=== PATIENT | male | born 1985 | race Caucasian/White ===

== ENCOUNTER 2017-01-14 13:23 | Emergency (ER) | payer BC, OTHER ==
[2017-01-14] MEDS ORDERED: ONDANSETRON 4 MG/2 ML VIAL IVP ONE ×2 (13:37→15:17)
[2017-01-14] MEDS ORDERED: HYDROmorphONE/DILAUDID 1 MG/ML SYR IVP ONE (13:37)
[2017-01-14] MEDS ORDERED: NS 1,000 ML IV ONE ×2 (13:37→14:40)
[2017-01-14] MEDS ORDERED: fentaNYL 100 MCG/2 ML INJ IVP ONE (13:37)
--- NOTE | 2017-01-14 13:44 | EDPHY ---
H & P HPI/ROS: HPI CHIEF COMPLAINT: Full trauma activation, fall while para gliding, lower extremity weakness and numbness and tingling HISTORY OF PRESENT ILLNESS: This patient 30-year-old male, presents emergency room by EMS as a full trauma alert. Upon arrival in emergency room is a GCS 15 , alert or x4, in a cervical collar. Complaining of low back pain, right hip pain, decreased sensation in his right lower extremity right lower extremity weakness. Unclear exactly how far he fell. He does not recall how high he was when he hit the ground. He states he was para clotting and then went into a spiral. Positive LOC. His main complaint is right hip pain, right leg pain. Additionally also has right chest wall pain. Upon arrival I did meet the patient in ER room to full trauma alert with Dr. Vineet Root's with Trauma surgery. The patient is alert or x4, GCS 15, he is hemodynamically stable. Head to toe trauma exam was performed. And fast bedside exam was performed. The patient's fast exam was negative upon arrival. His vital signs were stable. Pertinent positives on trauma exam head to toe he has right chest wall pain tenderness palpation, also has right hip pain times palpation. No respiratory distress. No abdominal pain. Patient head to toe exam. Remains hemodynamically stable he had a chest x-ray and a pelvis x-ray the chest x-ray do not appreciate a pneumothorax. Or significant rib fractures. His pelvis x-ray possible widening of the right SI joint. The patient was given 250 mg of IV fentanyl prior to arrival. 100 mcg of IV fentanyl in the emergency room as well as 1 mg Dilaudid IV. Past Medical History: Denies medical history Past Surgical History: Lipoma removal right lower abdomen Social History: Denies daily use drugs alcohol tobacco products Family History: Noncontributory ROS REVIEW OF SYSTEMS: A comprehensive 10 point review of systems is otherwise negative aside from elements mentioned in the history of present illness. Exam Constitutional GCS 15, alert or x4 triage nursing summary reviewed, vital signs reviewed, awake/alert. Eyes normal conjunctivae and sclera, EOMI, PERRLA. HENT head/neck atraumatic, remains cervical spine collar normal inspection, atraumatic, moist mucus membranes, no epistaxis, neck supple/ no meningismus, no raccoon eyes. Respiratory clear to auscultation bilaterally, normal breath sounds, no respiratory distress, no wheezing. Cardiovascular chest wall: Tender palpation right lateral chest wall, no crepitus, no flail chest, good breath sounds bilaterally, rate normal, regular rhythm, no murmur, no edema, distal pulses normal. Gastrointestinal soft, non-tender, no rebound, no guarding, normal bowel sounds, no distension, no pulsatile mass. Genitourinary no CVA tenderness. Musculoskeletal right hip: Tender palpation over the right SI joint. As well as iliac wing. Right leg: Good pulse. Decreased sensation of the right lower extremity compared to left lower extremity. Right leg does appear weaker than the left leg. Good distal pulse. Left leg unremarkable. Good distal pulse, cap refill normal, good sensation. no midline vertebral tenderness, full range of motion, no calf swelling, no tenderness of extremities, no meningismus, good pulses, neurovascularly intact. Skin pink, warm, & dry, no rash, skin atraumatic. Neurologic awake, alert and oriented x 3, AAOx3, moves all 4 extremities equally, motor intact, sensory intact, CN II-XII intact, normal cerebellar, normal vision, normal speech. Psychiatric normal mood/affect. Heme/Lymph/Immune no lymphadenopathy. Differential Diagnosis: Includes but is not limited to in a particular order, pelvic fracture, spinal fracture, lumbar fracture, multiple contusions, pneumothorax, rib fractures, intra-abdominal solid organ injury, poly trauma Medical Decision Making: Plan for this patient 2 large-bore IVs, full regulatory submissions specialist, fast exam, CT chest abdomen pelvis with IV contrast for trauma, CT recon of the thoracic and lumbar spine. Chest x-ray, pelvis x-ray. Type and screen. Re-evaluation: 1401: Consulted Dr. Ceballos with [facility] they will see him. Consultation. 1402: This patient at this time is back from CT is hemodynamically stable we did a head to toe trauma exam again in rolled him on his back he has some swelling over his posterior SI joints bilaterally an abrasion does left scapula. Otherwise unremarkable back exam good rectal tone. 40761: This patient remains hemodynamically stable. CT results show renal laceration, multiple lumbar transverse process fractures, bilateral rib fractures. Small pneumothorax. Multiple pelvic fractures. 1452: This time the patient remains hemodynamically stable. Neurosurgery is at bedside evaluating him. The patient be admitted to the ICU 1st he will have an MRI of his lumbar spine. Due to his right leg weakness and sensory loss to top of his foot. Patient remains hemodynamically stable this time pain control. 1608: Of note this patient has been evaluated by Neurosurgery and Orthopedics they feel that his pelvis fractures too extensive to be appropriately cared for here at [facility]. They requested this patient be transferred out to a higher level of care which most likely be [facility]. Spoke with Dr. Silva the trauma surgeon will come down to the emergency room will touch base with [facility] or [facility] Trauma team for transfer. This patient be transferred by helicopter to there. Reason for transfer by helicopter is kidney laceration, extensive pelvic fractures, transverse process fractures and need for expedient care. 1624: This patient has been accepted by [facility] specifically trauma service specifically Dr. Alonso Madden. This patient be transferred by helicopter to [facility] from [facility]. Appropriate transfer paperwork has been set up. However cups her notified. Patient again at this time is hemodynamically stable and safe for transfer. Again reason for transfer complex pelvic fracture. Source: Patient, EMS Constitutional: Initial Vital Signs Temperature (C) 35.9 C L 01/14/17 13:25 Heart Rate 110 H 01/14/17 13:25 Respiratory Rate 16 01/14/17 13:25 Blood Pressure 120/80 01/14/17 13:25 O2 Sat (%) 97 01/14/17 13:25 O2 Delivery Mode Nasal Cannula O2 (L/minute) 2 Allergies/Adverse Reactions: Sulfa (Sulfonamide Antibiotics) Allergy (Verified 01/14/17 14:23) Home Medications: Medication Instructions Recorded NK [No Known Home Meds] 01/14/17 Medical Decision Making - Diagnostics Imaging Results: Imaging Impressions Chest CT 01/14/17 13:29 Impression: 1. Suspect tiny pneumothorax along the anterior surface of the liver. 2. Buckle fractures of the anterior right and left ribs near the costochondral junction. 3. No evidence of acute aortic injury. 4. No pulmonary contusion or hemothorax. 4. No thoracic spine fracture. Findings discussed with Emergency Department physician, Dr. Vineet Silva on 2016 at 1415 hours. Chest X-Ray 01/14/17 13:29 Impression: No acute findings on the imaged chest. The patient will subsequently undergo CT chest. Pelvis X-Ray 01/14/17 13:30 Impression: Probable comminuted sacral fracture. The patient will undergo CT pelvis the same day. Abdomen CT 01/14/17 13:38 Impression: 1. Grade 3 right renal injury. No active bleeding. Delayed imaging of the kidney to assess for urinary leak could not be obtained due to unstable pelvic fractures. 2. No evidence of solid organ injury. 3. Nondisplaced right L4 and L5 transverse fractures. 4. Complex sacral fracture. Findings discussed with Emergency Department physician, Dr. Bruno Silva on 01/14 at [address] 01/14/17 13:38 Impression: 1. Comminuted U-shaped transverse fracture involving the S1-S2 segment of the upper sacrum. 2. Comminuted vertically oriented bilateral sacral fractures coursing through the neural foramen. 3. Right L4 and L5 transverse process fractures. 4. No lumbar spine compression fracture or burst fracture. Findings discussed with Emergency Department physician, Dr. Bruno Silva on 01/14 at [address] 01/14/17 13:38 Impression: Negative for fracture. Findings discussed with Emergency Department physician, Dr. Bruno Silva on 01/14 at 1415 hours. - Data Points Medications Given: Discontinued Medications Diazepam (Valium Injection) 2.5 mg IVP EDNOW ONE Stop: 01/14/17 14:00 Last Admin: 01/14/17 14:00 Dose: 2.5 mg Diazepam (Valium Injection) 2.5 mg IVP EDNOW ONE Stop: 01/14/17 14:51 Last Admin: 01/14/17 14:58 Dose: 2.5 mg Fentanyl (Sublimaze) 100 mcg IVP EDNOW ONE Stop: 01/14/17 13:38 Last Admin: 01/14/17 13:27 Dose: 100 mcg Hydromorphone HCl (Dilaudid) 1 mg IVP EDNOW ONE Stop: 01/14/17 13:38 Last Admin: 01/14/17 13:37 Dose: 1 mg Hydromorphone HCl (Dilaudid) 1 mg IVP EDNOW ONE Stop: 01/14/17 14:31 Last Admin: 01/14/17 14:38 Dose: 1 mg Sodium Chloride (Ns) 1,000 mls @ 0 mls/hr IV ONCE ONE; Wide Open PRN Reason: Protocol Stop: 01/14/17 13:38 Last Admin: 01/14/17 13:25 Dose: 1,000 mls Ondansetron HCl (Zofran) 4 mg IVP EDNOW ONE Stop: 01/14/17 13:38 Last Admin: 01/14/17 14:38 Dose: 4 mg Ondansetron HCl (Zofran) 4 mg IVP EDNOW ONE Stop: 01/14/17 15:18 Last Admin: 01/14/17 15:27 Dose: 4 mg Departure - Departure Disposition: [facility] Inpatient Acute Clinical Impression: Multiple transverse process fractures Pelvic fracture Qualifiers: Encounter type: initial encounter Pelvic bone location: multiple parts Fracture type: closed Fracture alignment: with stable disruption of pelvic ring Qualified Code(s): S32.810A - Multiple fractures of pelvis with stable disruption of pelvic ring, initial encounter for closed fracture Fractured kidney Qualifiers: Encounter type: initial encounter Laterality: right Qualified Code(s): S37.091A - Other injury of right kidney, initial encounter Condition: Fair
[2017-01-14] MEDS ORDERED: DIAZEPAM 2.5 MG PR ONE (13:58)
[2017-01-14] MEDS ORDERED: DIAZEPAM 10 MG/2 ML SYR ONE (13:58)
[2017-01-14] MEDS ORDERED: DIAZEPAM 10 MG/2 ML SYR IVP ONE ×2 (13:59→14:50)
[2017-01-14 14:11] LABS: % IMMATURE GRANULYOCYTES 1.2 % (0.0-1.1); ADD DIFF? NO; ADD MORPH? NO; ADD SCAN? NO; ATYPICAL LYMPHOCYTE FLAG 0 (0-99); FRAGMENT RBC FLAG 0 (0-99); HEMATOCRIT 33.8 % (40.0-51.0); HEMOGLOBIN 11.6 g/dL (13.7-17.5); LEFT SHIFT FLG 70 (0-99); LIPEMIA HEMOLYSIS FLAG 90 (0-99); MEAN CELL HEMOGLOBIN 33.3 pg (27.9-34.1); MEAN CELL HEMOGLOBIN CONCENTR. 34.3 g/dL (32.4-36.7); MEAN CELL VOLUME 97.1 fL (81.5-99.8); MEAN PLATELET VOLUME 9.5 fL (8.7-11.7); PLATELET CLUMPS FLAG 0 (0-99); PLATELET COUNT 227 10^3/uL (150-400); RED BLOOD CELL COUNT 3.48 10^6/uL (4.40-6.38); RED CELL DISTRIBUTION WIDTH 12.6 % (11.5-15.2)
--- NOTE | 2017-01-14 14:12 | PDGENHP ---
History and Physical - Chief Complaint right hip pain - History of Present Illness 31 y/o male unwitnessed fall while paragliding, BIB EMR as a FTA. Patient was transported with cervical/lumbar spine precautions. I met him in the trauma bay with Dr. Franks upon arrival. He was awake and alert with complaints of right "hip" pain. He reports some numbness of his right foot. He denies LOC, nausea, vomiting, neck pain History Information - Allergies/Home Medication List Allergies/Adverse Reactions: Sulfa (Sulfonamide Antibiotics) Allergy (Verified 01/14/17 14:23) Home Medications: NK [No Known Home Meds] 01/14/17 [Last Taken Unknown] I have personally reviewed and updated: family history, medical history, social history, surgical history - Past Medical History no pertinent PMH - Surgical History Additional surgical history: laceration repair abdominal wall/RLQ - Social History Smoking Status: Current some day smoker Alcohol Use: Occasionally Drug Use: None Review of Systems Constitutional: Reports: no symptoms EENMT: Reports: no symptoms Cardiac: Reports: other (right lower chest pain) Respiratory: Reports: no symptoms Gastrointestinal: Reports: no symptoms Genitourinary: Reports: no symptoms Muscolosketal: Reports: back pain, muscle pain Skin: Reports: no symptoms Neurological: Reports: paresthesia (RLE) Hematologic/Lymphatic: Reports: no symptoms Physical Exam Physical Exam: athletic appearing young male in severe distress Constitutional: other (severe pain with transfer) Eyes: PERRL, EOMI Ears, Nose, Mouth, Throat: moist mucous membranes, other (left TM clear/right TM obscured) Cardiovascular: regular rate and rhythym, tachycardia Peripheral Pulses: 3+: dorsalis-pedis (R), dorsalis-pedis (L), 4+: carotid (R), carotid (L), femoral (R), femoral (L) Respiratory: no rales or rhonchi, clear to auscultation, other (tender to palpation right lower chest wall) Genitourinary: no bladder fullness, other (normal external genitalia without injury) Skin: warm, other (abrasion right shoulder) Musculoskeletal: other (weakness R plantar/dorsi-flexion) Neurologic: AAOx3, CN II-XII Intact, other (decreased sensation to light touch and pin-prick right plantar) Psychiatric: interacting appropriately Lymph, Heme, Immunologic: no cervical LAD Lab Data & Imaging Review 01/14/17 14:02 01/14/17 14:02 Visualized and Interpreted Chest x-ray results: Yes Chest X-Ray results: no infiltrate Visualized and Interpreted imaging results: Yes Interpretation: discussed with Dr. Campo. L 7-8 rib fx, R 9-10 rib fx, R L4- 5 TP fractures, bilateral S1 fractures with displacement, retroperitoneal hematoma, right renal laceration grade III,. possible tiny right pneumothorax Assessment & Plan Assessment: s/p fall while paragliding, unwitnessed Fractured kidney (Acute) Multiple transverse process fractures (Acute) bilateral sacral fracture bilateral rib fractures possible small pneumothorax, right Plan: Admit ICU, NPO, IV fluids neurosurgery, urology consults spine precautions discussed with Dr. Ceballos/will obtain MRI lumbar-sacral
[2017-01-14 14:26] LABS: ANION GAP 13 mEq/L (8-16); CALCIUM 8.8 mg/dL (8.5-10.4); CARBON DIOXIDE 18 mEq/l (22-31); CHLORIDE 107 mEq/L (97-110); CREATININE 1.1 mg/dL (0.7-1.3); ETHANOL SERUM < 10 mg/dL (0-10); GLOMERULAR FILTRATION RATE > 60; GLUCOSE 111 mg/dL (70-100); POTASSIUM 3.9 mEq/L (3.5-5.2); SODIUM 138 mEq/L (134-144)
[2017-01-14 14:27] LABS: INR 1.21 (0.83-1.16); PROTIME(PATIENT) 15.3 SEC (12.0-15.0)
[2017-01-14] MEDS ORDERED: HYDROmorphONE/DILAUDID 2 MG/ML INJ IVP ONE (14:30)
[2017-01-14] MEDS ORDERED: HYDROmorphONE/DILAUDID 1 MG/ML SYR ONE (14:31)
[2017-01-14] MEDS ORDERED: NALOXONE HCL 0.4 MG/ML INJ IVP PRN (14:41)
[2017-01-14] MEDS ORDERED: LORazepam 2 MG/ML INJ IVP PRN (14:41)
[2017-01-14] MEDS ORDERED: ONDANSETRON 4 MG/2 ML VIAL IVP PRN (14:41)
[2017-01-14] MEDS ORDERED: HYDROmorphONE/DILAUDID 1 MG/ML SYR IVP PRN (14:45)
[2017-01-14 14:50] VITALS: BP 120/80; PULSE 110; RESP 16; TEMP 96.6; O2SAT 97
[2017-01-14] MEDS ORDERED: fentaNYL/NACL 100 ML IV SCH (15:00)
[2017-01-14] MEDS ORDERED: FAMOTIDINE 20 MG/NACL 50 ML IV SCH (15:00)
[2017-01-14 16:06] LABS: COLOR RED; LEUKOCYTE ESTERASE,URINE NEGATIVE (NEGATIVE); NITRITE,URINE NEGATIVE (NEGATIVE)
--- NOTE | 2017-01-14 16:06 | SOAPPROG ---
Downtime Inpatient MD Late Entry SOAP Note: I spoke with Dr. Ceballos and he recommended Neal be transferred to a higher level of care. I will contact [facility] or [facility] and discuss with their trauma surgeons.
[2017-01-14 16:20] LABS: % IMMATURE GRANULYOCYTES 0.6 % (0.0-1.1); ABSOLUTE IMMATURE GRANULOCYTES 0.08 10^3/uL (0.00-0.10); ADD DIFF? NO; ADD MORPH? NO; ADD SCAN? YES; ATYPICAL LYMPHOCYTE FLAG 0 (0-99); FRAGMENT RBC FLAG 0 (0-99); HEMATOCRIT 30.2 % (40.0-51.0); HEMOGLOBIN 10.3 g/dL (13.7-17.5); LIPEMIA HEMOLYSIS FLAG 90 (0-99); MEAN CELL HEMOGLOBIN 33.4 pg (27.9-34.1); MEAN CELL HEMOGLOBIN CONCENTR. 34.1 g/dL (32.4-36.7); MEAN CELL VOLUME 98.1 fL (81.5-99.8); MEAN PLATELET VOLUME 9.4 fL (8.7-11.7); PLATELET CLUMPS FLAG 10 (0-99); PLATELET COUNT 192 10^3/uL (150-400); RED BLOOD CELL COUNT 3.08 10^6/uL (4.40-6.38); RED CELL DISTRIBUTION WIDTH 12.7 % (11.5-15.2)
[2017-01-14 16:21] LABS: LEFT SHIFT FLG 100 (0-99)
[2017-01-14 16:21] LABS: BACTERIA 4+ /hpf (NONE SEEN); RBC,URINE 50-182 /hpf (0-3)
[2017-01-14] MEDS ORDERED: PROMETHAZINE HCL 25 MG/ML INJ ONE (16:33)
[2017-01-14 17:00] LABS: SCAN NEGATIVE
--- NOTE | 2017-01-14 21:59 | GCON ---
[f rep st] CONSULTATION EMERGENCY ROOM CONSULTATION DATE OF CONSULTATION: 01/14/2017 CHIEF COMPLAINT: Full-trauma activation, fall while paragliding, right lower extremity weakness and numbness. HISTORY OF PRESENT ILLNESS: Patient was seen and examined at 1415.The patient is a 31-year-old male who presented to the emergency room by [facility] as a full-trauma activation. The patient is complaining of lower back pain, right hip pain, and numbness in all of the toes of his right foot. He denies any saddle anesthesia. The patient does not recall how he hit while he was paragliding. There was positive loss of consciousness. REVIEW OF SYSTEMS: A full 10-point review of systems was completed and otherwise negative aside from what has been stated in the HPI. PAST MEDICAL HISTORY: The patient states he had asthma as a child, but has not had any symptoms as an adult. PAST SURGICAL HISTORY: The patient states he has never had surgery. FAMILY MEDICAL HISTORY: The patient denies any cardiac history or diabetes in his mother or father. SOCIAL HISTORY: The patient does not smoke cigarettes. He drinks alcohol, 1-2 drinks per night. He smokes marijuana socially. PHYSICAL EXAMINATION: VITAL SIGNS: The patient's blood pressure is 120/80, heart rate 110, respiratory rate 16, oxygen saturation 97% on 2 L nasal cannula , and temperature 35.9 Celsius. HEENT: Head is normocephalic, atraumatic. Pupils are equal, round and reactive to light. EOMI are intact. Full visual ortez by confrontation. Nose is patent. NECK: Soft and supple. He does have some mild tenderness in his cervical spine, with full range of motion on flexion, extension, and lateral bearing rotation. RESPIRATORY: Deferred. CARDIAC: Deferred. ABDOMEN: Soft. Tender on the right side. GENITOURINARY AND RECTAL: Rectal tone intact per emergency room physician. NEUROLOGIC: The patient is awake, alert, and oriented to person, time, and place. Memory is intact to immediate past and current events. Speech: No aphagia or dysphonia. Cranial nerves 2 through 12 are grossly intact. Motor: The patient has 5/5 strength in the bilateral upper extremities, including the deltoids, biceps, triceps, brachioradialis, flexors, extensors, in process inspector, and intrinsic fingers. Motor in lower extremities unable to asses, Right Iliopsoas, quadriceps, and hamstrings motor function due to pain. Right tibialis anterior is 1/5. Right EHL is 1/5. Left lower extremity 5/5, including Iliopsoas, quadriceps, hamstrings, plantarflexion, dorsiflexion, and EHL. Sensation is grossly intact to light touch in the left lower extremity. Light touch sensation mildly decreased in the right lateral calf. Unable to assess straight-leg raise or RIAN test due to pain. Reflexes in the biceps, triceps, and brachioradialis are 2+/4. Knee jerk 2+/4 bilaterally. Toes are downgoing bilaterally. Frankie sign is negative. Babinski is negative, and there is no evidence of clonus. DIAGNOSTIC STUDIES: CT of the lumbar spine performed with IV contrast demonstrates a comminuted U-shaped fracture involving the S1-S2 segment of the upper sacrum, comminuted vertically oriented bilateral sacral fractures coursing through the neural foramen, and a right L4 and L5 transverse process fracture. There is no lumbar spine compression fracture or burst fracture noted on the CAT scan. We have ordered a STAT MRI lumbar spine which is still pending at this time. ASSESSMENT AND PLAN: This patient is a 31-year-old male who was paragliding today and had a fall. The patient had positive loss of consciousness. CT of the lumbar spine demonstrates a comminuted U-shaped transverse fracture involving the S1-S2 segment of the upper sacrum, as well as comminuted vertically oriented bilateral sacral fractures coursing through the neural foramen. He also has right L4 and L5 transverse process fractures. The patient 's sensation is intact in his groin, rectal tone is intact per the ER doctor. Neurosurgeons, Dr. Ceballos and Dr. Sam, discussed this patient's condition and feel that this is a very complex sacral fracture that needs an academic affairs manager's surgical attention. We will contact Trauma and arrange for transfer to the [facility] in [place] for surgical fixation of his sacrum. The patient was seen in the emergency room by myself, as well as Dr. Bartolo Ceballos. /[id number]/MODL MTDD
== END 2017-01-14 17:17 | disposition short-term general hospital (02) ==
LOC: EDBD 13:23 → UNDOADMIN 13:58
DX: S37.051A Moderate laceration of right kidney, initial encounter (principal); S32.810A Multiple fractures of pelvis with stable disruption of pelvic ring, initial encounter for closed fracture; S32.041A Stable burst fracture of fourth lumbar vertebra, initial encounter for closed fracture; S32.051A Stable burst fracture of fifth lumbar vertebra, initial encounter for closed fracture; S22.41XA Multiple fractures of ribs, right side, initial encounter for closed fracture; S22.42XA Multiple fractures of ribs, left side, initial encounter for closed fracture; V96 Accident to nonpowered aircraft causing injury to occupant; Y92.39 Other specified sports and athletic area as the place of occurrence of the external cause; Y93.19 Activity, other involving water and watercraft
CPT/HCPCS: 96374; G0480; J1170; J2405; J2550; J3010